=== PATIENT | female | born 1955 | race Caucasian/White ===

== ENCOUNTER 2016-09-28 09:55 | Emergency (ER) | payer MEDICAID ==
[~2016-09-28] VITALS: Ht 160 cm; Wt 97.5 kg
[2016-09-28 12:58] VITALS: BP 179/81
[2016-09-28] MEDS ORDERED: methylPREDNISolone SOD SUCC 125 MG/2 ML VL IM ONE (13:00)
[2016-09-28] MEDS ORDERED: ALBUTEROL SULF 2.5 MG/0.5ML(0.5%) NEB SOLN NEB ONE (13:00)
[2016-09-28] MEDS ORDERED: cefTRIAXone SOD 1,000 MG VL IM ONE (13:00)
[2016-09-28] MEDS ORDERED: IPRATROPIUM BROM 0.5 MG/2.5ML INH SOL NEB ONE (13:00)
== END 2016-09-28 13:52 | disposition home or self-care (01) ==
LOC: ER 10:10
DX: J20.9 Acute bronchitis, unspecified (principal); J02.9 Acute pharyngitis, unspecified; J01.90 Acute sinusitis, unspecified; G89.29 Other chronic pain; M54.5 Low back pain; M19.90 Unspecified osteoarthritis, unspecified site; I10 Essential (primary) hypertension
CPT/HCPCS: 71020; 94640; 96372; 99284; J0696; J2930